=== PATIENT | female | born 1970 | race Caucasian/White ===

== ENCOUNTER 2017-05-20 13:22 | Emergency (ER) | payer OTHER ==
[~2017-05-20 13:22] MED LIST: ALPRAZOLAM0.5 MG PO; FLEXERIL10 MG PO; MEDROL DOSEPAK1 PAC PO; NORCO 325 MG-51 TAB PO; OXYCODONE HYDRO10 M1 PO
== END 2017-05-20 13:57 | disposition admitted as inpatient to this hospital (09) ==
LOC: ERH 13:22
DX: M79.641 Pain in right hand (principal)

== ENCOUNTER 2017-06-29 10:26 | Emergency (ER) | payer OTHER ==
[~2017-06-29] VITALS: Ht 152.4 cm; Wt 52.2 kg
[2017-06-29 10:31] VITALS: BP 129/82
--- NOTE | 2017-06-29 11:12 | ED HAND/WRIST INJURY COMPLAINT ---
History of Present Illness General Chief Complaint: Hand or Wrist Injury Stated Complaint: "I FELL ON MY FINGER" Source: patient, old records Exam Limitations: no limitations Vital Signs & Intake/Output Vital Signs & Intake/Output Vital Signs Date Time Temp Pulse Resp B/P B/P Pulse O2 O2 Flow FiO2 Mean Ox Delivery Rate 06/29 1128 Room Air 06/29 1031 97.2 92 18 129/82 98 Room Air Allergies Coded Allergies: MDX - Tramadol (TRAMADOL) (UPSET STOMACH 02/09/14) Reconcile Medications Alprazolam 0.25 MG TABLET 1 TAB PO QPM ANXIETY (Reported) OXYCODONE HCL (Oxycodone Hydrochloride) 10 MG TABLET 1 TAB PO BID PAIN ( Reported) Oxycodone HCl/Acetaminophen (Percocet 5-325 MG Tablet) 5 MG-325 MG TABLET 1 TAB PO Q6P PRN severe pain Triage Note: PT TO ER C/C RIGHT 4TH FINGER PAIN AND SWELING S/P MECHANICAL FALL LAST NIGHT. DENIES OTHER INJURY. Triage Nurses Notes Reviewed? yes Occurred: yesterday Duration: hour(s):, constant, continues in ED Timing: recent history Injury Environment: street Severity: severe Pain/Injury Location: Right: 4th finger. Context: fall Method of Injury: direct blow, fall Modifying Factors: Worsens With: movement. Associated Symptoms: swelling, redness, GCS 15 since, stiffness LMP (ages 10-50): unknown : No Patient currently breastfeeds: No HPI: The evening prior to admission patient was walking and texting. She tripped and struck her right ring finger on the ground. This morning she woke with limited range of motion and swelling to the distal phalanx. She denies other injuries fever chills nausea vomiting diarrhea abdominal pain chest pain shortness breath headache dysuria rash bleeding. She is right-hand dominant. Past History Travel History Traveled to [place] past 21 day No Medical History Any Pertinent Medical History? see below for history Musculoskeletal: chronic back pain Psychiatric: anxiety, depression Surgical History Surgical History: non-contributory Psychosocial History Who do you live with Friend What is your primary language Afghan Tobacco Use: Current Daily Use Daily Tobacco Use Amount/Type: => 5 Cigarettes daily Family History Hx Contributory? No Review of Systems Review of Systems Constitutional: Reports: no symptoms. EENTM: Reports: no symptoms. Respiratory: Reports: no symptoms. Cardiovascular: Reports: no symptoms. GI: Reports: no symptoms. Genitourinary: Reports: no symptoms. Musculoskeletal: Reports: see HPI, joint pain, joint swelling. Skin: Reports: no symptoms. Neurological/Psychological: Reports: no symptoms. Hematologic/Endocrine: Reports: no symptoms. Immunologic/Allergic: Reports: no symptoms. All Other Systems: Reviewed and Negative Physical Exam Physical Exam General Appearance: well developed/nourished, alert, awake, anxious, mild distress Head: atraumatic, normal appearance Eyes: Bilateral: normal appearance, PERRL, EOMI. Ears, Nose, Throat: normal pharynx, normal ENT inspection, hearing grossly normal Neck: normal inspection, supple, full range of motion, no midline tenderness Cardiovascular/Respiratory: normal breath sounds, normal peripheral pulses, regular rate/rhythm, no respiratory distress Back: normal inspection Shoulder Left: normal range of motion, normal inspection Shoulder Right: normal range of motion, normal inspection Elbow Left: normal range of motion, normal inspection Elbow Right: normal range of motion, normal inspection Forearm Left: normal range of motion, normal inspection Forearm Right: normal range of motion, normal inspection Wrist Left: normal range of motion, normal inspection Wrist Right: normal range of motion, normal inspection Hand Left: normal inspection, normal range of motion Hand Right: evidence of injury, swelling, tender, 4th finger (DP) Reflexes: 2+: bicep (R), bicep (L). Neurologic/Tendon: normal sensation, normal motor functions, normal tendon functions Skin: intact, normal color, warm/dry Lymphatic: no anterior cervical sandra Progress Differential Diagnosis: contusion, dislocation, fracture, sprain Plan of Care: Orders Procedure Date/time Status XRY-HAND, 3 View RIGHT 06/29 1032 Active Diagnostic Imaging: Viewed by Me: Radiology Read. Discussed w/RAD: Radiology Read. Radiology Impression: Soft tissue swelling overlying fracture to the base of the fourth distal phalanx. Departure Departure Time of Disposition: 1128 Disposition: HOME OR SELF CARE Condition: Stable Clinical Impression Primary Impression: Finger fracture, right Qualifiers: Encounter type: initial encounter Finger: ring finger Fracture type : closed Phalanx: distal Fracture alignment: nondisplaced Qualified Code: S62.664A - Nondisplaced fracture of distal phalanx of right ring finger, initial encounter for closed fracture Referrals: Klauser MD,[place] Call for orthopedic follow up Nora Goins APRN (PCP/Family) Departure Forms: Customer Survey General Discharge Information Prescriptions: Current Visit Scripts Oxycodone HCl/Acetaminophen (Percocet 5-325 MG Tablet) 1 TAB PO Q6P PRN severe pain #15 TAB Procedures Splinting Location: right ring finger Pre-Made Type: metal Splint: finger Splint Applied By: splint applied by other Pre-Proc Neuro Vasc Exam: normal Post-Proc Neuro Vasc Exam: normal
--- NOTE | 2017-06-29 11:24 | RADIOLOGY REPORT ---
EXAMINATION: RIGHT HAND 3 VIEWS CLINICAL INFORMATION: Right fourth digit swelling. COMPARISON: 05/23/2017. TECHNIQUE: PA, lateral, oblique views of the right hand were obtained. FINDINGS: There is soft tissue swelling to the fourth digit. There is a small avulsion fracture from the dorsal base of the fourth distal phalanx. There are a few fragments of bone at this location. This was identified on the prior exam. IMPRESSION: Soft tissue swelling overlying fracture to the base of the fourth distal phalanx.
[2017-06-29] MEDS ORDERED: PERCOCET 5-3251 EACH PO (11:32)
== END 2017-06-29 11:37 ==
LOC: ERH 10:26
DX: S62.604A Fracture of unspecified phalanx of right ring finger, initial encounter for closed fracture (principal); W18.09XA Striking against other object with subsequent fall, initial encounter; Y92.9 Unspecified place or not applicable; Y93.9 Activity, unspecified
CPT/HCPCS: 73130-RT